=== PATIENT | female | born 1965 | race Caucasian/White ===

== ENCOUNTER 2016-09-01 02:05 | Emergency (ER) | payer SELFPAY ==
[~2016-09-01 02:05] MED LIST: Z.0.NO CURRENT MEDS; ZOVI800T13 PO
[2016-09-01 02:10] VITALS: BP 130/80; PULSE 104; RESP 18; TEMP 97.8; O2SAT 97
[2016-09-01 04:37] LABS: AUTOMATED NEUTROPHIL # 6.2 TH/MM3 (1.8-7.7); BASOPHIL % 0.5 % (0.0-2.0); EOSINOPHIL % 0.1 % (0.0-4.0); HEMATOCRIT 48.3 % (35.0-46.0); HEMO FLAGS DIFF FINAL; LYMPH % 23.3 % (9.0-44.0); MEAN CELL VOLUME 82.1 FL (80.0-100.0); MEAN CORPUSCULAR HGB CONC 32.9 % (32.0-36.0); MONO % 4.3 % (0.0-8.0); NEUT % 71.8 % (16.0-70.0); PLATELET COUNT 351 TH/MM3 (150-450); RED BLOOD COUNT 5.89 MIL/MM3 (4.00-5.30); RED CELL DISTRIBUTION WIDTH 14.3 % (11.6-17.2); WHITE BLOOD COUNT 8.7 TH/MM3 (4.0-11.0)
[2016-09-01 04:47] LABS: PROTHROMBIN TIME - PATIENT 11.4 SEC (9.8-11.6)
[2016-09-01 04:56] LABS: ALKALINE PHOSPHATASE 91 U/L (45-117); TOTAL BILIRUBIN ADULT 0.9 MG/DL (0.2-1.0)
[2016-09-01 05:03] LABS: ALT (GPT) 32 U/L (10-53); ANION GAP 10 MEQ/L (5-15); AST (GOT) 23 U/L (15-37); BICARBONATE 27.5 MEQ/L (21.0-32.0); BLOOD UREA NITROGEN 13 MG/DL (7-18); CHLORIDE 98 MEQ/L (98-107); GLOMERULAR FILTRATION RATE 71 ML/MIN (>89); MAGNESIUM 2.4 MG/DL (1.5-2.5); SODIUM (NA) 135 MEQ/L (136-145)
[2016-09-01 05:09] VITALS: O2SAT 99
--- NOTE | 2016-09-01 05:17 | PD ---
HPI Chief Complaint: Abdominal Pain Time Seen by Provider: 03:39 Travel History International Travel<30 days: No Contact w/Intl Traveler<30days: No Traveled to known affect area: No History of Present Illness HPI The patient is a 51 year old female who presents to the [facility] emergency department with a history of abdominal pain that she reports is been going on for the last 4-7 days. The patient reports that the pain is in the midepigastric area and area just above the umbilicus. The patient reports that the pain comes and goes. The patient reports that it is sharp in character. She reports that she's had associated nausea and vomiting. She reports that she vomits approximately 3-4 times a day. She denies having any diarrhea. The patient reports that her last bowel movement was yesterday and was unremarkable. She denies having any blood in her stool or black or tarry stools. The patient reports a past medical history of several years ago having a peptic ulcer. She reports that she is not currently under treatment regarding this as the symptoms resolved. The patient denies having a primary care physician currently. The patient on review of systems reports that she has been also experiencing weight loss. She reports that she's had a 30 pound weight loss over the last 4 months without trying. Otherwise on review of systems, the patient denies any recent fevers, cough, congestion, neck pain, chest pain, shortness of breath, urinary symptoms, or neurologic symptoms. LMP: hysterectomy. PFSH Past Medical History Narrative Medical The patient's past medical history is significant for peptic ulcer disease with endoscopy last 2 years ago. ?: Not : 5 Past Surgical History Narrative Surgical The patient's past surgical history is significant for a hysterectomy. Hysterectomy: Yes Social History Alcohol Use: No Tobacco Use: Yes (05/17 PPD) Substance Use: No Allergies-Medications (Allergen,Severity, Reaction): Coded Allergies: No Known Allergies (Verified , 09/01/16) Reported Meds & Prescriptions Reported Meds & Active Scripts Active Review of Systems Except as stated in HPI: all other systems reviewed are Neg General / Constitutional: No: Fever Eyes: No: Visual changes HENT: No: Headaches Cardiovascular: No: Chest Pain or Discomfort Respiratory: No: Shortness of Breath Gastrointestinal: Positive: Nausea, Vomiting, Abdominal Pain, Loss of Appetite , No: Diarrhea, Hematemesis, Changes in Bowel Habits Genitourinary: No: Dysuria Musculoskeletal: No: Pain Skin: No Rash Neurologic: No: Weakness Psychiatric: No: Depression Endocrine: No: Polydipsia Hematologic/Lymphatic: No: Easy Bruising Physical Exam Narrative General: The patient is a well-developed well-nourished female in no acute distress. Head and Neck exam: Head is normocephalic atraumatic. Eyes: EOMI, pupils are equal round and reactive to light. Nose: Midline septum with pink mucous membranes Mouth: Dentition unremarkable. Moist mucus membranes. Posterior oropharynx is not erythematous. No tonsillar hypertrophy. Uvula midline. Airway patent. Neck: No palpable lymphadenopathy. No nuchal rigidity. No thyromegaly. Cardiovascular: Regular rate and rhythm without murmurs, gallops, or rubs. Lungs: Clear to auscultation bilaterally. No wheezes, rhonchi, or rales. Abdomen: Soft, with reported tenderness on deep palpation of the midepigastric area and area just above the umbilicus no other tenderness on palpation of the other 4 quadrants of the abdomen. No guarding, rebound, or rigidity. Negative [place] sign. No tenderness on palpation of McBurney's point. Normal bowel sounds are audible. Extremities: No clubbing, cyanosis, or edema. 2+ pulses in all 4 extremities. No calf tenderness on palpation. Back: No spinous process tenderness to palpation. No costovertebral angle tenderness to palpation. Neurologic Exam: Grossly nonfocal. Skin Exam: No rash noted. Intact skin that is warm and dry. Data Data Last Documented VS Vital Signs Date Time Temp Pulse Resp B/P Pulse Ox O2 Delivery O2 Flow Rate FiO2 09/01/16 05:09 99 Room Air 09/01/16 02:10 97.8 104 18 130/80 Orders Electrocardiogram (09/01/16 04:01) Complete Blood Count With Diff (09/01/16 04:01) Comprehensive Metabolic Panel (09/01/16 04:01) Prothrombin Time / Inr (Pt) (09/01/16 04:01) C-Reactive Protein (Crp) (09/01/16 04:01) Lipase (09/01/16 04:01) Urinalysis - C+S If Indicated (09/01/16 04:01) Magnesium (Mg) (09/01/16 04:01) Ct Abd/Pel W Iv Contrast(Rout) (09/01/16 04:01) Iv Access Insert/Monitor (09/01/16 04:01) Ecg Monitoring (09/01/16 04:01) Oximetry (09/01/16 04:01) Lactic Acid (09/01/16 04:01) Sodium Chlor 0.9% 1000 Ml Inj (Ns 1000 M (09/01/16 05:30) Ondansetron Inj (Zofran Inj) (09/01/16 05:30) Morphine Inj (Morphine Inj) (09/01/16 05:30) Thyroid Stimulating Hormone (09/01/16 05:19) Sodium Chlor 0.9% 1000 Ml Inj (Ns 1000 M (09/01/16 05:30) Iohexol 350 Inj (Omnipaque 350 Inj) (09/01/16 05:41) Labs Laboratory Tests Test 09/01/16 04:15 White Blood Count 8.7 TH/MM3 Red Blood Count 5.89 MIL/MM3 Hemoglobin 15.9 GM/DL Hematocrit 48.3 % Mean Corpuscular Volume 82.1 FL Mean Corpuscular Hemoglobin 27.0 PG Mean Corpuscular Hemoglobin 32.9 % Concent Red Cell Distribution Width 14.3 % Platelet Count 351 TH/MM3 Mean Platelet Volume 8.4 FL Neutrophils (%) (Auto) 71.8 % Lymphocytes (%) (Auto) 23.3 % Monocytes (%) (Auto) 4.3 % Eosinophils (%) (Auto) 0.1 % Basophils (%) (Auto) 0.5 % Neutrophils # (Auto) 6.2 TH/MM3 Lymphocytes # (Auto) 2.0 TH/MM3 Monocytes # (Auto) 0.4 TH/MM3 Eosinophils # (Auto) 0.0 TH/MM3 Basophils # (Auto) 0.0 TH/MM3 CBC Comment DIFF FINAL Differential Comment Prothrombin Time 11.4 SEC Prothromb Time International 1.0 RATIO Ratio Sodium Level 135 MEQ/L Potassium Level 5.0 MEQ/L Chloride Level 98 MEQ/L Carbon Dioxide Level 27.5 MEQ/L Anion Gap 10 MEQ/L Blood Urea Nitrogen 13 MG/DL Creatinine 0.85 MG/DL Estimat Glomerular Filtration 71 ML/MIN Rate Random Glucose 112 MG/DL Lactic Acid Level 0.8 mmol/L Calcium Level 9.5 MG/DL Magnesium Level 2.4 MG/DL Total Bilirubin 0.9 MG/DL Aspartate Amino Transf 23 U/L (AST/SGOT) Alanine Aminotransferase 32 U/L (ALT/SGPT) Alkaline Phosphatase 91 U/L C-Reactive Protein LESS THAN 0.29 MG/DL Total Protein 8.2 GM/DL Albumin 4.3 GM/DL Lipase 109 U/L Thyroid Stimulating Hormone 0.679 uIU/ML [address] [place] [address] Medical Decision Making Medical Screen Exam Complete: Yes Emergency Medical Condition: Yes Medical Record Reviewed: Yes Interpretation(s) Last Impressions Abdomen/Pelvis CT 09/01/16 0401 Signed Impressions: Service Date/Time: Thursday, September 01, 2016 05:37 - CONCLUSION: Normal examination except for benign left renal cyst. Lázaro Dominguez MD Differential Diagnosis Peptic ulcer disease, versus acute pancreatitis, versus biliary colic, versus acute cholecystitis, versus tumor Narrative Course During the course of the patients emergency department visit, the patients history, examination, and differential diagnosis were reviewed with the patient. The patient had IV access obtained and blood work sent for analysis. The patient was placed on a groundwater monitoring technician with oximetry and blood pressure monitoring. An EKG was done on arrival. The patient's EKG reveals a sinus rhythm heart rate of 88, no acute ST segment elevation is noted. T waves are inverted in V1 and V2. The patient was initially provided normal saline IV fluids, Zofran 4 mg IV for nausea. The patients laboratory studies were reviewed and remarkable for a white count of 8.7, hemoglobin 15.9, platelets 351 with 71.8 neutrophils, CMP is remarkable for sodium of 135, glucose 112, lactic acid is 0.8, C-reactive protein is less than 0.29, lipase 109, TSH 0.679, INR 1.0 Radiology studies were reviewed and remarkable for a CT scan of the abdomen and pelvis that shows a normal examination except for a benign left renal cyst. The patient was instructed regarding the importance of following up with a primary care physician for additional testing regarding her unintentional weight loss. The patient was given a prescription for Zofran for nausea and Bentyl for abdominal cramping. Additionally, the patient was started on a proton pump inhibitor in case her symptoms are partly related to a recurrent peptic ulcer. The patient was given the name of the outpatient referral doctor , Dr. Colt Rangel for follow-up in the next 2 days. The patient was given the name of the night shift supervisor for follow-up regarding her unintentional weight loss and history of peptic ulcer disease, Dr. Balderrama for follow-up in 1 week. The patient is resting comfortably and feels better, is alert and in no distress. The patients results and examination findings were discussed with the patient. The repeat examination is unremarkable and benign. The history, exam, diagnostic testing, and current condition do not suggest any significant pathology to warrant further testing, continued ED treatment, admission, or surgical evaluation at this point. The vital signs have been stable. The patient does not have uncontrollable pain, intractable vomiting, or other significant symptoms. The patient's condition is stable and appropriate for discharge. The patient will pursue further outpatient evaluation with a primary care physician or other designated or consulting physician as indicated in the discharge instructions. The patient expressed understanding and was agreeable with this plan. Diagnosis Primary Impression: Abdominal pain Qualified Code: R10.13 - Epigastric pain Additional Impressions: Weight loss Vomiting Qualified Code: R11.2 - Non-intractable vomiting with nausea, unspecified vomiting type Referrals: Radha Balderrama MD 1 week Lyssa Morillo MD 2 days Patient Instructions: Abdominal Pain (ED), Acute Nausea and Vomiting (ED), General Instructions Med/Other Pt SpecificInfo: Prescription(s) given Scripts Omeprazole 40 Mg Cap40 Mg PO DAILY #14 CAP Ref 0 Prov:Saida Alexis MD 09/01/16 Dicyclomine (Bentyl)10 Mg Cap10 Mg PO TID PRN (CRAMPS) #12 CAP Ref 0 Prov:Saida Alexis MD 09/01/16 Ondansetron Odt (Zofran Odt)4 Mg Tab4 Mg SL Q6HR PRN (Nausea/Vomiting) #7 TAB Ref 0 Prov:Saida Alexis MD 09/01/16 Disposition: 01 DISCHARGE HOME Condition: Stable Saida Alexis MD Sep 01, 2016 05:17
[2016-09-01] MEDS ORDERED: SODIUM CHLOR 0.9% 1000 ML INJ 1,000 ML IV ONE ×2 (05:30)
[2016-09-01] MEDS ORDERED: MORPHINE SULFATE 4 MG/ML INJ IV PUSH ONE (05:30)
[2016-09-01] MEDS ORDERED: ONDANSETRON HCL 4 MG/2 ML VIAL IV ONE (05:30)
[2016-09-01] MEDS ORDERED: IOHEXOL 350 MG/ML 10 ML VIAL (for RAD DIAG) IV ONE (05:41)
--- NOTE | 2016-09-01 06:07 | RADRPT ---
EXAM DATE/TIME: 09/01/2016 05:37 [facility] COMPARISON: No previous studies available for comparison. INDICATIONS : Abdomen pain with vomiting past 3 days. IV CONTRAST: 75 cc Omnipaque 350 (iohexol) IV ORAL CONTRAST: No oral contrast ingested. RADIATION DOSE: 4.55 CTDIvol (mGy) MEDICAL HISTORY : None SURGICAL HISTORY : Hysterectomy. ENCOUNTER: Initial ACUITY: 3 days PAIN SCALE: 10/10 LOCATION: Bilateral abdomen TECHNIQUE: Volumetric scanning of the abdomen and pelvis was performed. Using automated exposure control and ad justment of the mA and/or kV according to patient size, radiation dose was kept as low as reasonably achievable to obtain optimal diagnostic quality images. FINDINGS: LOWER LUNGS: The visualized lower lungs are clear. LIVER: Homogeneous density without lesion. There is no dilation of the biliary tree. No calcified gallston es. SPLEEN: Normal size without lesion. PANCREAS: Within normal limits. KIDNEYS: Normal in size and shape. There is no mass, stone or hydronephrosis except benign left renal cyst. ADRENAL GLANDS: Within normal limits. VASCULAR: There is no aortic aneurysm. BOWEL/MESENTERY: The stomach, small bowel, and colon demonstrate no acute abnormality. There is no free intraperitone al air or fluid. ABDOMINAL WALL: Within normal limits. RETROPERITONEUM: There is no lymphadenopathy. BLADDER: No wall thickening or mass. REPRODUCTIVE: Within normal limits. INGUINAL: There is no lymphadenopathy or hernia. MUSCULOSKELETAL: Within normal limits for patient age. CONCLUSION: Normal examination except for benign left renal cyst. Lázaro Dominguez MD on September 01, 2016 at 6:05 Board Certified Radiologist. This report was verified electronically.
[2016-09-01] MEDS ORDERED: DICY10 PO (07:28)
[2016-09-01] MEDS ORDERED: ZOFR4TAB3 SL (07:28)
[2016-09-01] MEDS ORDERED: OMEP40CA2 PO (07:28)
--- NOTE | 2016-09-01 22:23 | EKG ---
Date Performed: 09/01/2016 Time Performed: 05:07:33 PTAGE: 51 years EKG: Sinus rhythm POSSIBLE LEFT ATRIAL ENLARGEMENT BORDERLINE ECG NO PREVIOUS TRACING DOCTOR: Deniz Herbert Interpretating Date/Time 09/01/2016 22:21:54
== END 2016-09-01 08:39 | disposition home or self-care (01) ==
LOC: NEPE 02:05
DX: R10.13 Epigastric pain (principal); R11.2 Nausea with vomiting, unspecified; R63.4 Abnormal weight loss; F17.200 Nicotine dependence, unspecified, uncomplicated
CPT/HCPCS: 74177; 80053; 83605; 83690; 83735; 84443; 85025; 85610; 86140; 93005; 96361; 96374; 96375; 99284; J2270; J2405; J7030; Q9967

== ENCOUNTER 2017-05-19 14:42 | Emergency (ER) | payer SELFPAY ==
[~2017-05-19 14:42] MED LIST changes: +DICY10 PO; +OMEP40CA2 PO; -Z.0.NO CURRENT MEDS; +ZOFR4TAB3 SL; -ZOVI800T13 PO
[2017-05-19 14:44] VITALS: BP 157/92; PULSE 74; RESP 16; TEMP 97.9; O2SAT 98
[2017-05-19] MEDS ORDERED: SODIUM CHLOR 0.9% 1000 ML INJ 1,000 ML IV SCH (17:12)
[2017-05-19] MEDS ORDERED: SODIUM CHLORIDE 0.9% FLUSH 10 ML FLUSH IV FLUSH PRN (17:15)
[2017-05-19] MEDS ORDERED: ONDANSETRON HCL 4 MG/2 ML VIAL IVP ONE (17:15)
[2017-05-19] MEDS ORDERED: FAMOTIDINE 20 MG/2 ML VIAL IV PUSH ONE (17:15)
--- NOTE | 2017-05-19 17:23 | PD ---
HPI Chief Complaint: Abdominal Pain Time Seen by Provider: 17:12 Travel History International Travel<30 days: No Contact w/Intl Traveler<30days: No Traveled to known affect area: No History of Present Illness HPI 52-year-old female patient with history of gastric ulcer, does not have a GI doctor currently and is not on her GI meds, presents for several days history of increasing abdominal pains which she currently measures at a 7 out of 10, nausea, vomiting. She denies any fevers, chest pains, shortness of breath, or any other symptoms. Modifying Factors: None Associated Signs & Symptoms: Abdominal pains, nausea and vomiting Risk Factors: Gastric ulcer history PFSH Past Medical History : 5 Past Surgical History Hysterectomy: Yes Social History Alcohol Use: No Tobacco Use: Yes (05/17 PPD) Substance Use: No Allergies-Medications (Allergen,Severity, Reaction): Coded Allergies: No Known Allergies (Verified Adverse Reaction, Unknown, 05/19/17) Reported Meds & Prescriptions Reported Meds & Active Scripts Active No Active Prescriptions or Reported Medications Review of Systems Except as stated in HPI: all other systems reviewed are Neg Physical Exam Narrative GENERAL: Thin middle age female patient currently in mild distress. Awake and oriented 3. SKIN: Focused skin assessment warm/dry. HEAD: Atraumatic. Normocephalic. EYES: Pupils equal and round. No scleral icterus. No injection or drainage. ENT: No nasal bleeding or discharge. Mucous membranes pink and moist. NECK: Trachea midline. No JVD. CARDIOVASCULAR: Regular rate and rhythm. No murmur appreciated. RESPIRATORY: No accessory muscle use. Clear to auscultation. Breath sounds equal bilaterally. GASTROINTESTINAL: Abdomen soft, mild left lower quadrant tenderness without guarding or rebound, nondistended. Hepatic and splenic margins not palpable. MUSCULOSKELETAL: No obvious deformities. No clubbing. No cyanosis. No edema. NEUROLOGICAL: Awake and alert. No obvious cranial nerve deficits. Motor grossly within normal limits. Normal speech. PSYCHIATRIC: Appropriate mood and affect; insight and judgment normal. Data Data Last Documented VS Vital Signs Date Time Temp Pulse Resp B/P (MAP) Pulse Ox O2 Delivery O2 Flow Rate FiO2 05/19/17 17:44 17 05/19/17 17:44 100 Room Air 05/19/17 14:44 97.9 74 Orders Orders Complete Blood Count With Diff (05/19/17 17:12) Comprehensive Metabolic Panel (05/19/17 17:12) Lipase (05/19/17 17:12) Urinalysis - C+S If Indicated (05/19/17 17:12) Iv Access Insert/Monitor (05/19/17 17:12) Ecg Monitoring (05/19/17 17:12) Oximetry (05/19/17 17:12) Ondansetron Inj (Zofran Inj) (05/19/17 17:15) Sodium Chlor 0.9% 1000 Ml Inj (Ns 1000 M (05/19/17 17:12) Sodium Chloride 0.9% Flush (Ns Flush) (05/19/17 17:15) Famotidine Inj (Pepcid Inj) (05/19/17 17:15) Ct Abd/Pel W Iv Contrast(Rout) (05/19/17 18:49) Labs Laboratory Tests Test 05/19/17 17:45 White Blood Count 11.5 TH/MM3 Red Blood Count 5.16 MIL/MM3 Hemoglobin 14.9 GM/DL Hematocrit 44.4 % Mean Corpuscular Volume 86.0 FL Mean Corpuscular Hemoglobin 28.9 PG Mean Corpuscular Hemoglobin Concent 33.6 % Red Cell Distribution Width 14.6 % Platelet Count 445 TH/MM3 Mean Platelet Volume 7.6 FL Neutrophils (%) (Auto) 80.9 % Lymphocytes (%) (Auto) 16.6 % Monocytes (%) (Auto) 2.1 % Eosinophils (%) (Auto) 0.1 % Basophils (%) (Auto) 0.3 % Neutrophils # (Auto) 9.3 TH/MM3 Lymphocytes # (Auto) 1.9 TH/MM3 Monocytes # (Auto) 0.2 TH/MM3 Eosinophils # (Auto) 0.0 TH/MM3 Basophils # (Auto) 0.0 TH/MM3 CBC Comment DIFF FINAL Differential Comment Blood Urea Nitrogen 16 MG/DL Creatinine 0.67 MG/DL Random Glucose 118 MG/DL Albumin 3.9 GM/DL Calcium Level 9.1 MG/DL Aspartate Amino Transf (AST/SGOT) 24 U/L Alanine Aminotransferase (ALT/SGPT) 44 U/L Sodium Level 137 MEQ/L Potassium Level 4.3 MEQ/L Chloride Level 102 MEQ/L Carbon Dioxide Level 29.2 MEQ/L Anion Gap 6 MEQ/L Estimat Glomerular Filtration Rate 92 ML/MIN Lipase 122 U/L MDM Medical Decision Making Medical Screen Exam Complete: Yes Emergency Medical Condition: Yes Medical Record Reviewed: Yes Interpretation(s) Laboratory Tests Test 05/19/17 17:45 White Blood Count 11.5 TH/MM3 (4.0-11.0) Neutrophils (%) (Auto) 80.9 % (16.0-70.0) Neutrophils # (Auto) 9.3 TH/MM3 (1.8-7.7) Random Glucose 118 MG/DL (74-106) Differential Diagnosis Abdominal pain, nausea and vomiting: Gastritis versus gastric ulcer versus gastroenteritis versus pancreatitis Narrative Course Labwork and CAT scan was ordered for the patient. She was given acid blocking medication, IV fluids and Zofran. Physician Communication Physician Communication Case is signed out at 7 PM to oncoming physician awaiting CAT scan and disposition based on workup. Diagnosis Primary Impression: Abdominal pain Scripts No Active Prescriptions or Reported Meds Condition: Stable Jesus Rm MD May 19, 2017 17:23
[2017-05-19 17:44] VITALS: RESP 17; O2SAT 100
[2017-05-19 18:31] LABS: AUTOMATED NEUTROPHIL # 9.3 TH/MM3 (1.8-7.7); BASOPHIL % 0.3 % (0.0-2.0); EOSINOPHIL % 0.1 % (0.0-4.0); HEMATOCRIT 44.4 % (35.0-46.0); HEMOGLOBIN 14.9 GM/DL (11.6-15.3); LYMPH % 16.6 % (9.0-44.0); LYMPHOCYTE # 1.9 TH/MM3 (1.0-4.8); MEAN CORPUSCULAR HEMOGLOBIN 28.9 PG (27.0-34.0); MEAN CORPUSCULAR HGB CONC 33.6 % (32.0-36.0); MEAN PLATELET VOLUME 7.6 FL (7.0-11.0); MONO % 2.1 % (0.0-8.0); MONOCYTE # 0.2 TH/MM3 (0-0.9); NEUT % 80.9 % (16.0-70.0); PLATELET COUNT 445 TH/MM3 (150-450); RED BLOOD COUNT 5.16 MIL/MM3 (4.00-5.30); RED CELL DISTRIBUTION WIDTH 14.6 % (11.6-17.2); WHITE BLOOD COUNT 11.5 TH/MM3 (4.0-11.0)
[2017-05-19 18:51] LABS: ALBUMIN 3.9 GM/DL (3.4-5.0); ALT (GPT) 44 U/L (10-53); AST (GOT) 24 U/L (15-37); BICARBONATE 29.2 MEQ/L (21.0-32.0); BLOOD UREA NITROGEN 16 MG/DL (7-18); CALCIUM 9.1 MG/DL (8.5-10.1); CHLORIDE 102 MEQ/L (98-107); CREATININE 0.67 MG/DL (0.50-1.00); GLOMERULAR FILTRATION RATE 92 ML/MIN (>89); GLUCOSE,RANDOM 118 MG/DL (74-106); LIPASE 122 U/L (73-393); SODIUM (NA) 137 MEQ/L (136-145)
[2017-05-19 18:54] LABS: ALKALINE PHOSPHATASE 94 U/L (45-117); TOTAL BILIRUBIN ADULT 0.8 MG/DL (0.2-1.0); TOTAL PROTEIN 7.5 GM/DL (6.4-8.2)
[2017-05-19] MEDS ORDERED: IOHEXOL 350 MG/ML 10 ML VIAL (for RAD DIAG) IVCONTRAST ONE (19:29)
--- NOTE | 2017-05-19 19:36 | RADRPT ---
EXAM DATE/TIME: 05/19/2017 19:25 [facility] COMPARISON: CT ABDOMEN & PELVIS W CONTRAST, September 01, 2016, 5:37. INDICATIONS : Abdominal pain. IV CONTRAST: 75 cc Omnipaque 350 (iohexol) IV ORAL CONTRAST: No oral contrast ingested. RADIATION DOSE: 4.24 CTDIvol (mGy) MEDICAL HISTORY : Gastric ulcer. SURGICAL HISTORY : Hysterectomy. ENCOUNTER: Initial ACUITY: 1 day PAIN SCALE: 5/10 LOCATION: abdomen TECHNIQUE: Volumetric scanning of the abdomen and pelvis was performed. Using automated exposure control and ad justment of the mA and/or kV according to patient size, radiation dose was kept as low as reasonably achievable to obtain optimal diagnostic quality images. DICOM format image data is available electro nically for review and comparison. FINDINGS: Lung bases are clear. Patient is status post hysterectomy. There is mild dextroscoliosis of the lumba r spine. No pleural or pericardial effusions. Liver, gallbladder, right kidney, bilateral adrenal gla nds, spleen unremarkable. Simple cyst left upper pole kidney measuring 1.2 cm. Pancreas normal. There is atherosclerotic plaquing of the aortic bifurcation and proximal iliac vasculature. Urinary bladde r is unremarkable. No evidence of bowel obstruction, free fluid, or free air. Stomach normal. Appendi x normal. No adenopathy. CONCLUSION: Atherosclerosis. Left renal cyst. Rico Sanabria MD on May 19, 2017 at 19:33 Board Certified Radiologist. This report was verified electronically.
[2017-05-19 19:55] LABS: AMORPHOUS SEDIMENT, URINE RARE; BACTERIA, URINE OCC /hpf; BILIRUBIN, URINE NEG (NEG); BLOOD, URINE MOD (NEG); GLUCOSE,URINE NEG (NEG); KETONE, URINE NEG (NEG); MUCUS URINE FEW /lpf (OCC); NITRITE,URINE NEG (NEG); SQUAMOUS EPITHELIAL CELL URINE 1 /hpf (0-5); URINE COLOR LIGHT-YELLOW (YELLW/STRAW); URINE LEUKOCYTE ESTERASE NEG (NEG)
[2017-05-19] MEDS ORDERED: KETOROLAC TROMETHAMINE 30 MG/ML (IVP) VIAL IV PUSH ONE (20:45)
--- NOTE | 2017-05-19 21:25 | PD ---
Physical Exam Date Seen by Provider: May 19, 2017 Time Seen by Provider: 20:00 Narrative pt feeling better is hunger and wants food , labs CT noraml no need for further evaluation in the ER at this time she is safe for discharge for outpatient follow-up Protonix and Pepcid prescriptions will be given Data Data Last Documented VS Vital Signs Date Time Temp Pulse Resp B/P (MAP) Pulse Ox O2 Delivery O2 Flow Rate FiO2 05/19/17 21:33 05/19/17 17:44 17 05/19/17 17:44 100 Room Air 05/19/17 14:44 97.9 74 Orders Orders Complete Blood Count With Diff (05/19/17 17:12) Comprehensive Metabolic Panel (05/19/17 17:12) Lipase (05/19/17 17:12) Urinalysis - C+S If Indicated (05/19/17 17:12) Iv Access Insert/Monitor (05/19/17 17:12) Ecg Monitoring (05/19/17 17:12) Oximetry (05/19/17 17:12) Ondansetron Inj (Zofran Inj) (05/19/17 17:15) Sodium Chlor 0.9% 1000 Ml Inj (Ns 1000 M (05/19/17 17:12) Sodium Chloride 0.9% Flush (Ns Flush) (05/19/17 17:15) Famotidine Inj (Pepcid Inj) (05/19/17 17:15) Ct Abd/Pel W Iv Contrast(Rout) (05/19/17 18:49) Iohexol 350 Inj (Omnipaque 350 Inj) (05/19/17 19:29) Ketorolac Inj (Toradol Inj) (05/19/17 20:45) Ed Discharge Order (05/19/17 21:28) Labs Laboratory Tests Test 05/19/17 17:45 05/19/17 19:35 White Blood Count 11.5 TH/MM3 Red Blood Count 5.16 MIL/MM3 Hemoglobin 14.9 GM/DL Hematocrit 44.4 % Mean Corpuscular Volume 86.0 FL Mean Corpuscular Hemoglobin 28.9 PG Mean Corpuscular Hemoglobin Concent 33.6 % Red Cell Distribution Width 14.6 % Platelet Count 445 TH/MM3 Mean Platelet Volume 7.6 FL Neutrophils (%) (Auto) 80.9 % Lymphocytes (%) (Auto) 16.6 % Monocytes (%) (Auto) 2.1 % Eosinophils (%) (Auto) 0.1 % Basophils (%) (Auto) 0.3 % Neutrophils # (Auto) 9.3 TH/MM3 Lymphocytes # (Auto) 1.9 TH/MM3 Monocytes # (Auto) 0.2 TH/MM3 Eosinophils # (Auto) 0.0 TH/MM3 Basophils # (Auto) 0.0 TH/MM3 CBC Comment DIFF FINAL Differential Comment Blood Urea Nitrogen 16 MG/DL Creatinine 0.67 MG/DL Random Glucose 118 MG/DL Total Protein 7.5 GM/DL Albumin 3.9 GM/DL Calcium Level 9.1 MG/DL Alkaline Phosphatase 94 U/L Aspartate Amino Transf (AST/SGOT) 24 U/L Alanine Aminotransferase (ALT/SGPT) 44 U/L Total Bilirubin 0.8 MG/DL Sodium Level 137 MEQ/L Potassium Level 4.3 MEQ/L Chloride Level 102 MEQ/L Carbon Dioxide Level 29.2 MEQ/L Anion Gap 6 MEQ/L Estimat Glomerular Filtration Rate 92 ML/MIN Lipase 122 U/L Urine Color LIGHT-YELLOW Urine Turbidity HAZY Urine pH 7.0 Urine Specific [place] 1.010 Urine Protein NEG mg/dL Urine Glucose (UA) NEG mg/dL Urine Ketones NEG mg/dL Urine Occult Blood MOD Urine Nitrite NEG Urine Bilirubin NEG Urine Urobilinogen LESS THAN 2.0 MG/DL Urine Leukocyte Esterase NEG Urine RBC 10 /hpf Urine WBC 1 /hpf Urine Squamous Epithelial Cells 1 /hpf Urine Amorphous Sediment RARE Urine Bacteria OCC /hpf Urine Mucus FEW /lpf Microscopic Urinalysis Comment CULT NOT INDICATED MDM Supervised Visit with ALIA: No Diagnosis Primary Impression: Abdominal pain Additional Impression: Gastritis Patient Instructions: Gastritis (ED), General Instructions Scripts Esomeprazole DR (Nexium) 20 Mg Capdr 20 MG PO DAILY, #20 CAP 0 Refills Prov: Liam Morocho MD 05/19/17 Famotidine (Pepcid) 20 Mg Tab 20 MG PO BID, #30 TAB 0 Refills Prov: Liam Morocho MD 05/19/17 Condition: Stable Liam Morocho MD May 19, 2017 21:25
[2017-05-19] MEDS ORDERED: FAMO1TAB37 PO (21:26)
[2017-05-19] MEDS ORDERED: NEXI20CA PO (21:26)
== END 2017-05-19 21:36 | disposition home or self-care (01) ==
LOC: NEPE 14:42
DX: K29.70 Gastritis, unspecified, without bleeding (principal); F17.210 Nicotine dependence, cigarettes, uncomplicated
CPT/HCPCS: 74177; 80053; 81001; 83690; 85025; 96361; 96374; 96375; 99285; J2405; J7030; Q9967